=== PATIENT | female | born 1980 | race Caucasian/White ===

== ENCOUNTER 2022-04-21 13:00 | Outpatient (CLI) | payer OTHER, SELFPAY ==
--- NOTE | ~2022-04-21 | MM_ITS ---
EXAMINATION: MM diagnostic daysi RT w niyah HISTORY: Right breast asymmetry on screening mammogram TECHNIQUE: Additional 3-D tomosynthesis images of the right breast were performed and synthetic 2-D i mages were generated. CAD analysis was submitted and interpreted. COMPARISON: 03/07/2022 BREAST PARENCHYMAL COMPOSITION: The breasts are heterogeneously dense, which may obscure small masses . FINDINGS: No persistent asymmetry is identified with spot compression of the right breast. There is n o suspicious mass, calcification, or architectural distortion. IMPRESSION: 1. No mammographic evidence of malignancy. 2. Recommend routine screening mammography in one year. BI-RADS Category 1: Negative Reviewed, dictated and finalized at location A. VELOPMENT MANAGER
== END 2022-04-21 13:01 | disposition home or self-care (01) ==
PROVIDERS: PCP Family Medicine; Visit Provider Obstetrics & Gynecology
DX: R92.8 Other abnormal and inconclusive findings on diagnostic imaging of breast (principal)
CPT/HCPCS: 77061; 77065; G0279

== ENCOUNTER 2023-05-26 15:43 | Outpatient (CLI) | payer OTHER, SELFPAY ==
--- NOTE | ~2023-05-26 | MM_ITS ---
EXAMINATION: MM screening daysi BI w niyah HISTORY: Screening mammogram TECHNIQUE: Craniocaudal and mediolateral oblique 3-D tomosynthesis images were obtained and synthetic 2-D images were generated. CAD analysis was submitted and interpreted. COMPARISON: 04/21/2022, 03/07/2022 BREAST PARENCHYMAL COMPOSITION: The breasts are heterogeneously dense, which may obscure small masses . FINDINGS: RIGHT BREAST: No suspicious mass, calcification, or architectural distortion are identified to sugges t malignancy. There has been no suspicious interval change. LEFT BREAST: An asymmetry is present in the far posterior third breast in line with the nipple axis o n the craniocaudal view. IMPRESSION: 1. Left breast asymmetry. 2. Additional mammographic views and possible breast ultrasound are recommended. BI-RADS Category 0: Incomplete: Needs additional imaging evaluation. Reviewed, dictated and finalized at location A. ING SYSTEMS INSTALLER IMPRESSION: 1. Left breast asymmetry. 2. Additional mammographic views and possible breast ultrasound are recommended . BI-RADS Category 0: Incomplete: Needs additional imaging evaluation.
== END 2023-05-26 15:44 | disposition home or self-care (01) ==
PROVIDERS: PCP Family Medicine; Visit Provider Obstetrics & Gynecology
DX: Z12.31 Encounter for screening mammogram for malignant neoplasm of breast (principal); R92.8 Other abnormal and inconclusive findings on diagnostic imaging of breast
CPT/HCPCS: 77063; 77067

== ENCOUNTER 2023-06-15 12:45 | Outpatient (CLI) | payer OTHER, SELFPAY ==
--- NOTE | ~2023-06-15 | MMUS_ITS ---
EXAMINATION: MM diagnostic daysi LT w niyah, US breast LT complete HISTORY: Follow-up left breast asymmetries TECHNIQUE: Additional 3-D tomosynthesis images of the left breast were performed and synthetic 2-D im ages were generated. CAD analysis was submitted and interpreted. High resolution complete left breast ultrasound was performed. COMPARISON: Comparison to multiple prior studies sequentially, with oldest reviewed study dated 02/16. BREAST PARENCHYMAL COMPOSITION: BREAST PARENCHYMAL COMPOSITION: The breasts are heterogeneously dense, which may obscure small masses . FINDINGS: MAMMOGRAPHIC FINDINGS: There are no suspicious masses, calcifications or architectural distortion in the left breast to sugg est malignancy. The areas of asymmetry in the left breast are less apparent with spot compression vie ws. ULTRASOUND: Complete US of all 4 quadrants of the left breast and retroareolar region was reviewed. There are mul tiple cysts of the left breast, largest measuring 6 mm. No suspicious masses in the left breast to reyes ggest malignancy. IMPRESSION: 1. No evidence for malignancy in the left breast. Benign findings. 2. Routine yearly screening mammogram and regular clinical breast examination are recommended. BI-RADS Category 2: Benign finding(s). Reviewed, dictated and finalized at location A. TAL PRODUCER IMPRESSION: 1. No evidence for malignancy in the left breast. Benign findings. 2. Routine yearly screening mammogram and regular clinical breast examination a re recommended. BI-RADS Category 2: Benign finding(s).
== END 2023-06-15 12:46 | disposition home or self-care (01) ==
LOC: ANHIMG 12:46
PROVIDERS: PCP Family Medicine; Visit Provider Obstetrics & Gynecology
DX: R92.8 Other abnormal and inconclusive findings on diagnostic imaging of breast (principal)
CPT/HCPCS: 76641; 77061; 77065; G0279

== ENCOUNTER 2023-07-09 10:15 | Outpatient (CLI) | payer OTHER, SELFPAY ==
--- NOTE | 2023-07-09 10:36 | ECG_ITS ---
Measurements Intervals [place] Rate: 68 P: 4 TX: 145 QRS: 62 QRSD: 97 T: 30 QT: 393 QTc: 420 Interpretive Statements SINUS RHYTHM POSSIBLE LEFT ATRIAL ENLARGEMENT [-0.1mV P WAVE IN V1/V2] INCOMPLETE RIGHT BUNDLE BRANCH BLOCK [90+ ms QRS DURATION, TERMINAL R IN V1/V2, 40+ ms S IN I/aVL/V4/V5/V6] NO PREVIOUS ECG AVAILABLE FOR COMPARISON Electronically Signed On 07-09-2023 13:29:17 BROADLOOM WEAVER by Prieto Stroud M.D.
== END 2023-07-09 10:16 | disposition home or self-care (01) ==
LOC: ANHCARD 10:18
PROVIDERS: PCP Family Medicine; Visit Provider Physician Assistant
DX: I10 Essential (primary) hypertension (principal); I45.10 Unspecified right bundle-branch block
CPT/HCPCS: 93005

== ENCOUNTER 2024-04-21 09:33 | Outpatient (CLI) | payer OTHER, SELFPAY ==
--- NOTE | 2024-04-21 10:30 | ECHO_ITS ---
Patient Info Name: Kylah Mcgarry Age: 44 years : 1980 Gender: Female Ht: 67 in Wt: 155 lbs BSA: 1.83 m2 HR: 72 bpm BP: 112 / 72 mmHg Heart Rhythm: Sinus Rhythm Technical Quality: Excellent Exam Date: 04/21/2024 10:34 AM Exam Location: Echo Lab Patient Status: Outpatient Admit Date: 04/21/2024 Staff Ordering Physician: Chana Ayala PA-C [employer] Assembler: Delores Bello RDCS Attending Provider: Chana Ayala PA-C Referring Physician: Jamie THAO; Exam Type: CA echo doppler color flow Study Info Indications - palpitations Complete two-dimensional, color flow and Doppler transthoracic echocardiogram is performed. Summary 1. Complete two-dimensional, color flow and Doppler transthoracic echocardiogram is performed. 2. Normal biventricular systolic function. 3. Normal left ventricular diastolic function. 4. No significant valvular disease. Left Ventricle The left ventricle is normal in size and systolic function. The left ventricular ejection fraction is visually estimated to be 60-65%. The left ventricle has normal diastolic function. Right Ventricle The right ventricle is normal in size and systolic function. Left Atria The left atrium is normal in size. Right Atria The right atrium is normal in size. Atrial Septum The atrial septum is visually intact. Aortic Valve The aortic valve is trileaflet and opens well. There is no aortic regurgitation. Pulmonic Valve The pulmonic valve is not well visualized. There is no color Doppler evidence of pulmonic valve regurgitation. Mitral Valve The mitral valve is normal. There is no mitral regurgitation. Tricuspid Valve The tricuspid valve is normal. There is trace tricuspid regurgitation. Pericardium/Pleural Pericardium is normal in appearance with no evidence for significant pericardial effusion. Inferior Vena Cava Dilated inferior vena cava with >50% collapse upon inspiration consistent with elevated right atrial pressure, 10 mmHg. Aorta The ascending aorta measures 2.9 cm in diameter. The aortic root at the level of sinus of Valsalva: Index to BSA measures 1.6 cm/m2. Left Ventricular Outflow Tract Name Value Normal LVOT Doppler LVOT Peak Gradient 4 mmHg LVOT Mean Gradient 2 mmHg LVOT VTI 22 cm LVOT VTI/AV VTI Ratio 0.8 Pulmonic Valve Name Value Normal PV Doppler PV Peak Gradient 3 mmHg PV Regurgitation Doppler IN Peak End Diastolic Velocity 87 cm/s Mitral Valve Name Value Normal MV Doppler MV Decel [place] 443 cm/s2 MV PHT 53 ms MV Area (PHT) 4.2 cm2 4.0-5.0 MV Regurgitation Doppler MR Peak Gradient 70 mmHg MV Diastolic Function MV E Peak Velocity 81 cm/s MV A Peak Velocity 75 cm/s MV E/A 1.1 MV Decel Time 183 ms MV Annular TDI MV E/e' (Septal) 11.4 <=8.0 MV E/e' (Lateral) 7.7 <=8.0 MV E/e' (Average) 9.6 Tricuspid Valve Name Value Normal TV Regurgitation Doppler TR Peak Velocity 224 cm/s TR Peak Gradient 20 mmHg Estimated PAP/RSVP RA Pressure 10 mmHg <=5 PA Systolic Pressure 30 mmHg <36 RV Systolic Pressure 30 mmHg <36 Aorta Name Value Normal Ascending Aorta Ao Root Diameter (2D) 2.9 cm Ao Root Diam Index (2D) 1.6 cm/m2 Aortic Valve Name Value Normal AV Doppler AV Peak Velocity 136 cm/s AV Peak Gradient 7 mmHg AV Mean Gradient 4 mmHg AV VTI 28 cm Ventricles Name Value Normal LV Dimensions 2D/MM IVS Diastolic Thickness (2D) 0.7 cm 0.6-1.0 LVID Diastole (2D) 4.5 cm 3.8-5.2 LVIW Diastolic Thickness (2D) 0.9 cm 0.6-0.9 LVID Systole (2D) 3.0 cm 2.2-3.5 LV Mass (2D Cubed) 118.54 g 67.00-162.00 LV Mass Index (2D Cubed) 65 g/m2 43-95 Relative Wall Thickness (2D) 0.40 LV Fractional Shortening/Ejection Fraction 2D/MM LV Fractional Shortening (2D) 34 % 27-45 LV EF (2D Teicholz) 63 % 54-74 LV Diastolic Volume (4C MOD) 95 ml LV EF (4C MOD) 64 % LV Diastolic Volume (2C MOD) 89 ml LV EF (2C MOD) 58 % LV Diastolic Volume (BP MOD) 98 ml 46-106 LV Diastolic Volume Index (BP MOD) 53 ml/m2 29-61 LV Systolic Volume (BP MOD) 40 ml 14-42 LV Systolic Volume Index (BP MOD) 22 ml/m2 8-24 LV EF (BP MOD) 59 % 54-74 LV Diastolic Length (4C) 7.1 cm LV Systolic Length (4C) 5.3 cm LV Stroke Volume (4C MOD) 61 ml Atria Name Value Normal LA Dimensions LA Dimension (2D) 3.9 cm 2.7-3.8 LA Dimen Index (2D) 2.2 cm/m2 LA Volume (4C A-L) 44 ml LA Volume (BP A-L) 43 ml RA Dimensions RA Area (4C) 13.2 cm2 <=18.0 Report Signatures
== END 2024-04-21 09:34 | disposition home or self-care (01) ==
LOC: ANHCARD 09:34
PROVIDERS: PCP Family Medicine; Visit Provider Student in an Organized Health Care Education/Training Program
DX: R00.2 Palpitations (principal)
CPT/HCPCS: 93306

== ENCOUNTER 2024-09-02 08:49 | Outpatient (CLI) | payer OTHER, SELFPAY ==
--- NOTE | ~2024-09-02 | MM_ITS ---
EXAMINATION: MM screening daysi BI w niyah HISTORY: Screening TECHNIQUE: Craniocaudal and mediolateral oblique 3-D tomosynthesis images were obtained and synthetic 2-D images were generated. CAD analysis was submitted and interpreted. COMPARISON: Comparison to multiple prior studies sequentially, with oldest reviewed study dated 02/16. BREAST PARENCHYMAL COMPOSITION: Dense: The breasts are heterogeneously dense, which may obscure small masses FINDINGS: There is no evidence of suspicious mass, calcification, or architectural distortion to sugg est malignancy in either breast. There has been no suspicious interval change. IMPRESSION: 1. No mammographic evidence of malignancy. 2. Recommend routine screening mammography in one year. BI-RADS Category 1: Negative Reviewed, dictated and finalized at location B.
--- OUTSIDE RECORDS SUMMARY | 2024-09-02 08:57 | XMS_ITS | Clinical Summary ---
Author Organization [facility] Address [address] [place] [address] Care Team Providers Care Fire Extinguisher Repairer Inspector Name Role Phone Unavailable Primary Care Provider Unavailabl e Source Comments [facility],non-owned Affiliates and Associated Physician Practices is amultiple site organization consisting of ambulatory clinics and hospital sitesin [place], [place] and [place]. This disclosure is being madepursuant to the Care Everywhere program and may not contain all information available regarding this patient. Last updated 18.[facility] Allergies No known active allergies Medications * Be aware that medications may not be up to date on this document. Alwaysverify current medications with the patient. Vit-Fe Fumarate-FA ( 19 CHEWABLE) tablet Take 1 tablet by mouth once daily Active Norethin Everett-Eth Estrad-FE (LOESTRIN 24 FE PO) Active albuterol HFA (VENTOLIN HFA) 108 (90 BASE) MCG/ACT inhalerIndicatio ns:Acute bronchitis, unspecified organism Inhale 2 puffs by mouth every 6 hours as needed for Wheezing or Cough 1 Inhaler 9 Active Active Problems No known active problems Family History Medical History Relation Name Comments Hypertension Father Thyroid Disease Mother Asthma Neg Hx Autoimmune Disease Neg Hx Bipolar Disorder Neg Hx Cancer - Breast Neg Hx Cancer - Colon Neg Hx Cancer - Other Neg Hx Cancer - Ovarian Neg Hx Cancer - Pancreatic Neg Hx Cancer - Prostate Neg Hx Depression Neg Hx Eczema Neg Hx Migraine Neg Hx Osteoporosis Neg Hx Seizures Neg Hx Sudd. <30 Neg Hx Ulcerative Colitis Neg Hx Relation Name Status Comments Father Alive Mother Alive Social History Tobacco Use Types Packs/Day Years Used Date Smoking Tobacco: Never Smokeless Tobacco: Never Tobacco Cessation:Counseling Given: No Alcohol Use Standard Drinks/Week Comments No 0 (1 standard drink = 0.6 oz pur e alcohol) Comments No Sex and Gender Information Value Date Recorded Sex Assigned at Not on file Legal Sex Female 11:27 AM GRAIN INSPECTOR Gender Identity Not on file Sexual Orientation Not on file Last Filed Vital Signs Vital Sign Reading Time Taken Comments Blood Pressure 114/66 07/22/2018 3:11 PM GRAIN INSPECTOR Pulse 94 07/22/2018 3:11 PM GRAIN INSPECTOR Temperature 37 C (98.6 F) 07/22/2018 3:11 PM GRAIN INSPECTOR Respiratory Rate 16 07/22/2018 3:11 PM GRAIN INSPECTOR Oxygen Saturation 99% 07/22/2018 3:11 PM GRAIN INSPECTOR Inhaled Oxygen Concentration - - Weight 68 kg (150 lb) 07/22/2018 3:11 PM GRAIN INSPECTOR Height 170.2 cm (5' 7 ) 07/22/2018 3:11 PM GRAIN INSPECTOR Body Mass Index 23.49 07/22/2018 3:11 PM GRAIN INSPECTOR Plan of Treatment Health Maintenance Due Date Last Done Comments LIPID TESTING 1980 MAMMOGRAM 1980 HIV SCREENING 1997 HEPATITIS C SCREENING 02/29/2000 DTAP/TDAP/TD VACCINES (1 - Tdap) 2001 HEPATITIS B VACCINE (1 of 3 - 19+ 3-dose series) 2001 COVID-19 VACCINE ( - 2023-2 5 season) 2024 DEPRESSION SCREENING 05/18/2024 INFLUENZA VACCINE (Season Ended) 2025 ZOSTER VACCINE (1 of 2) 2032 HIB VACCINE Aged Out No longer eligi ble based on patient's age to complete this topic HPV VACCINE Aged Out No longer eligi ble based on patient's age to complete this topic MENINGOCOCCAL (Group B) VACC INE SHARED DECISION-MAKING Aged Out No longer eligibl e based on patient's age to complete this topic MENINGOCOCCAL GROUPS A/C/Y/W VACCINE Aged Out No longer eligible b ased on patient's age to complete this topic PNEUMOCOCCAL VACCINE Aged Out No long er eligible based on patient's age to complete this topic Insurance [employer]
--- OUTSIDE RECORDS SUMMARY | 2024-09-02 08:57 | XMS_ITS | Referral Summary ---
Author Organization [facility] Address [address] [place] [address] Care Team Providers Care Day Care Teacher Name Role Phone Astrid Liz MD Primary Care Provider [phone] Allergies No known active allergies Medications No known medications Active Problems No known active problems Immunizations Immunization Administration Dates Next Due Tdap 11/23/2016 Social History Tobacco Use Types Packs/Day Years Used Date Smoking Tobacco: Never Assessed Comments Unknown Sex and Gender Information Value Date Recorded Sex Assigned at Not on file Legal Sex Female 7:13 PM GPS FIELD DATA COLLECTOR Gender Identity Not on file Sexual Orientation Not on file Last Filed Vital Signs Vital Sign Reading Time Taken Comments Blood Pressure - - Pulse - - Temperature - - Respiratory Rate - - Oxygen Saturation - - Inhaled Oxygen Concentration - - Weight 70.3 kg (155 lb) 04/30/2014 5:24 AM GPS FIELD DATA COLLECTOR Height 172.7 cm (5' 7.99 ) 04/30/2014 5:24 AM CS T Body Mass Index 23.57 04/30/2014 5:24 AM GPS FIELD DATA COLLECTOR Plan of Treatment Not on file Procedures Procedure Name Priority Date/Time Associated Diagnosis Comments SCREENING MAMMOGRAM BILATERAL W ANKIT Schedule Routine, Read Routine (OP Routine) 03/07/2022 9:28 AM CDT Encounter for other screening for malignant neoplasm of breast from Last 3 Months or Most Recently Relevant to Health Maintenance Results * (ABNORMAL) Screening Mammogram Bilateral W Ankit (03/07/2022 9:28 AM CDT) Anatomical Region Laterality Modality Breast Bilateral Mammography 03/07/2022 3:31 PM CDT Impressions 03/07/2022 3:31 PM CDT 1. Upper right breast asymmetry on the MLO view. Recommend diagnostic right breast mammogram and ultrasound. 2. No evidence of malignancy in the left breast. Recommend screening mammogram of left breast in one year. BI-RADS: 0 - Additional imaging evaluation is necessary. The patient will be contacted. Electronically signed by: Manuel Garcai M.D. Narrative 03/07/2022 3:31 PM CDT EXAMINATION: SCREENING MAMMOGRAM BILATERAL W ANKIT ORDERING HEALTHCARE PROVIDER: CHELO SPIVEY HISTORY: Routine screening mammography. COMPARISON: None available TECHNIQUE: CC and MLO views of the bilateral breasts were obtained with digital technique using breast tomosynthesis with C view. Computer aided detection was utilized. FINDINGS: DENSITY: The tissue of the bilateral breasts is heterogeneously dense, which may obscure small masses. BREASTS: There is an MLO view asymmetry in the upper right breast at middle depth. There are no suspicious masses, suspicious calcifications, or other suspicious findings in the left breast. us Chelo Spivey MD IMG MAMMO PROCEDURES F inal Result from Last 3 Months or Most Recently Relevant to Health Maintenance Insurance [employer] [facility] [place] [id number] [facility] [id number] Care Teams Day Care Teacher Relationship Specialty Start Date End Date Astrid Liz MD PCP - General Family Medicine 03/04/22
--- OUTSIDE RECORDS SUMMARY | 2024-09-02 08:57 | XMS_ITS | Data Portability ---
Author Organization [facility] Gal JANSEN Address [address] [place] [address] Care Team Providers Care Insurance Account Representative Name Role Phone CHELO SPIVEY Building Carpenter Helper Assessment Encounter Date Assessment Date Assessment LastModified by Organization Details LastModified Time 12/27/2021 12/27/2021 SAIL REPAIR PERSON exam normal needs a higher dose pill to avoid mid-cycle spotting kids going into kindergarten and 2nd grade gave her first mammogram order Not available 12/27/2021 10:33:12 02/03/2023 02/03/2023 normal learning strategist exam doing well on ocps kids are 6 &8 Not available 02/03/2023 14:20:06 07/21/2023 07/21/2023 vaginitis plus swab done. BV seems likely, will await results Not available 07/21/2023 11:47:26 04/07/2024 04/07/2024 learning strategist exam normal might consider switching to continuous OCPs if shoulder pain doesnt bobby. ( rare diaphragmatic osis?) Not available 04/07/2024 12:13:02 Plan of Treatment Reminders Order Date Submit Date Provider Last Modified By Organization Details Last Modified Time Details Appointments None record ed. Lab cytolo gy report , thin prep, smear or scrapi ng, cervic al or vagina l 2023 024 [facility], [address], [address], [place], [address], 11:23:58 vagina l pathog ens panel, MITZI+pr obe, vagina l fluid 2023 024 [facility], [address], [address], [place], [address], 4 07:15:17 cytolo gy report , thin prep, smear or scrapi ng, cervic al or vagina l 2022 023 [facility], [address] [place] [address], [address], [place], [address], 3 16:14:36 cytolo gy report , thin prep, smear or scrapi ng, cervic al or vagina l 2021 022 [facility], [address] [place] [address], [address], [place], [address], 2 16:12:59 Referral None record ed. Procedures None record ed. Surgeries None record ed. Imaging MAMMO, screen ing, digita l, bilate ral 2023 024 [facility] ([facility]) , [address], [place], [address], 5 17:40:01 MAMMO, screen ing, digita l, bilate ral 2022 023 [facility], [address] [facility] [place], [address], 4 15:29:05 MAMMO, screen ing, digita l, bilate ral 2021 022 [facility], [address] [place], [address], 2 18:03:06 Medication Orders Monika 0.25 mg-0.0 35 mg tablet 2023 024 [id number], [address], [place], [place], [id number], 4 12:01:37 Monika 0.25 mg-0.0 35 mg tablet 2022 023 [facility] #[id number], [address], [place], [place], [id number], 3 14:02:23 Sprint ec (28) 0.25 mg-0.0 35 mg tablet 2021 022 [facility] #[id number], [address], [place], [place], [id number], 2 10:32:50 Patient TargetsNo targets recorded. Patient Instructions Encounter Date Encounter Id Patient Instructions Last Modified By Organization Details Last Modified Time 12/27/2021 [id number] learning about breast cancer screening Not available 12/27/2021 10:32:21 02/03/2023 [id number] learning about breast cancer screening Not available 02/03/2023 14:02:11 04/07/2024 [id number] learning about breast cancer screening Not available 04/07/2024 12:01:31 Reason for Referral None Reported. Results Created Date Observation Date Name Description Value Unit Range Abnormal Flag Note LastModifiedBy Organization Detail LastModifiedTime 12/28/19 22 01/02/2022 IGP, RFX APTIM A HPV ASCU diagnosis: Commen t NEGAT LAUREN FOR INTRA EPITH ELIAL LESIO N OR JUAN MONTALVO . SPECI MEN REPRO CESSE D FOR INTER PRETA TION USING GLACI AL ACETI C ACID (GAA) . Not Available [facility] ([facility]) [address], [place], [place], [address], 01/02/2022 16:12:59 12/28/19 22 01/02/2022 IGP, RFX APTIM A HPV ASCU specimen adequacy: Commen t Satis facto ry for evalu ation . No endoc ervic al compo nent is ident ified . Areas of parti ally obscu ring blood are prese nt. Not Available [facility] ([facility]) [address] [place], [address], 01/02/2022 16:12:59 12/28/19 22 01/02/2022 IGP, RFX APTIM A HPV ASCU clinician provided ICD10: Mir forbes Z01.4 19 Not Available [facility] ([facility]) [address] [place], [address], 01/02/2022 16:12:59 12/28/19 22 01/02/2022 IGP, RFX APTIM A HPV ASCU performed by: Mir kirk, Nicola forbes (ASCP ) Not Available [facility] ([facility]) [address] [place], [address], 01/02/2022 16:12:59 12/28/19 22 01/02/2022 IGP, RFX APTIM A HPV ASCU . . Not Available [facility] ([facility]) [address] [place], [address], 01/02/2022 16:12:59 12/28/19 22 01/02/2022 IGP, RFX APTIM A HPV ASCU note: Mir forbes The Pap smear is a scree evette test patito brennan to aid in the detec tion of doyle ligna nt and malig nant condi tions of the uteri ne cervi x. It is not a diagn ostic proce dure and shoul d not be used as the sole means of detec ting cervi isa cance r. Both false -posi tive and false -nega tive repor ts do occur . Not Available [facility] ([facility]) [address] [place], [address], 01/02/2022 16:12:59 12/28/19 22 01/02/2022 IGP, RFX APTIM A HPV ASCU test methodology: TNP The Thin Prep( R) Image r was unabl e to read this speci men. There fore a manua l revie w was perfo rmed. Not Available [facility] ([facility]) [address], [place], [place], [address], 01/02/2022 16:12:59 12/28/19 22 01/02/2022 IGP, RFX APTIM A HPV ASCU . Commen t The HPV DNA refle x crite keagan were not met with this speci men resul t there fore, no HPV testi ng was perfo rmed. Not Available [facility] ([facility]) [address], [place], [place], [address], 01/02/2022 16:12:59 02/04/20 23 02/05/2023 IGP, RFX APTIM A HPV ASCU diagnosis: Commen t NEGAT LAUREN FOR INTRA EPITH ELIAL LESIO N OR JUAN MONTALVO . Not Available [facility] ([facility]) [address], [place], [place], [address], 02/05/2023 16:14:35 02/04/20 23 02/05/2023 IGP, RFX APTIM A HPV ASCU specimen adequacy: Commen t Satis facto ry for evalu ation . Endoc ervic al and/o r squam ous metap lasti c cells (endo cervi isa compo nent) are prese nt. Not Available [facility] ([facility]) [address], [place], [place], [address], 02/05/2023 16:14:35 02/04/20 23 02/05/2023 IGP, RFX APTIM A HPV ASCU clinician provided ICD10: Commen t Z01.4 19 Not Available [facility] ([facility]) [address], [place], [place], [address], 02/05/2023 16:14:35 02/04/20 23 02/05/2023 IGP, RFX APTIM A HPV ASCU performed by: Mir t Nicola Mcgee (ASCP ) Not Available [facility] ([facility]) [address] [place], [address], 02/05/2023 16:14:35 02/04/20 23 02/05/2023 IGP, RFX APTIM A HPV ASCU . . Not Available [facility] ([facility]) [address] [place], [address], 02/05/2023 16:14:35 02/04/20 23 02/05/2023 IGP, RFX APTIM A HPV ASCU note: Mir t The Pap smear is a scree evette test desig anu to aid in the detec tion of doyle ligna nt and malig nant condi tions of the uteri ne cervi x. It is not a diagn ostic proce dure and shoul d not be used as the sole means of detec ting cervi isa cance r. Both false -posi tive and false -nega tive repor ts do occur . Not Available [facility] ([facility]) [address] [place], [address], 02/05/2023 16:14:35 02/04/20 23 02/05/2023 IGP, RFX APTIM A HPV ASCU test methodology: Mir t This liqui d based ThinP rep(R ) pap test was scree anu with the use of an image guide d systkellee m. Not Available [facility] ([facility]) [address] [place], [address], 02/05/2023 16:14:35 02/04/20 23 02/05/2023 IGP, RFX APTIM A HPV ASCU . Mir t The HPV DNA refle x crite keagan were not met with this speci men resul t there fore, no HPV testi ng was perfo rmed. Not Available [facility] ([facility]) [address], [place], [place], [address], 02/05/2023 16:14:35 07/21/19 24 07/22/2023 NUA B VAGIN ITIS PLUS (VG+) atopobium vaginae Low - 0 score Not Available [facility] ([facility]) [address], [place], [place], [address], 07/23/2023 07:15:17 07/21/19 24 07/22/2023 NUA B VAGIN ITIS PLUS (VG+) bvab 2 Low - 0 score Not Available [facility] ([facility]) [address], [place], [place], [address], 07/23/2023 07:15:17 07/21/19 24 07/22/2023 NUA B VAGIN ITIS PLUS (VG+) megasphaera 1 Low - 0 score Calcu late total score by emmie day the 3 indiv idual bacte rial vagin osis (BV) marke r score s toget her. Total score is inter prete d as follo ws: Total score 0-1: Indic ates the absen ce of BV. Total score 2: Indet ermin ate for BV. Addit ional clini isa data shoul d be evalu ated to estab leif a diagn osis. Total score 3-6: Indic ates the prese nce of BV. This test was devel oped and its perfo rmanc e coleman cteri stics deter mined by [facility]. It has not been clear ed or appro beny by the Food and Drug Admin istra tion. Not Available [facility] ([facility]) [address], [place], [place], [address], 07/23/2023 07:15:17 07/21/19 24 07/22/2023 NUA B VAGIN ITIS PLUS (VG+) yamilet albicans, MITZI Negati ve negati ve Not Available [facility] ([facility]) [address], [place], [place], [address], 07/23/2023 07:15:17 07/21/19 24 07/22/2023 NUA B VAGIN ITIS PLUS (VG+) yamilet glabrata, MITZI Negati ve negati ve Not Available [facility] ([facility]) [address], [place], [place], [address], 07/23/2023 07:15:17 07/21/19 24 07/23/2023 NUA B VAGIN ITIS PLUS (VG+) trich vag by MITZI Negati ve negati ve Not Available [facility] ([facility]) [address] [place], [address], 07/23/2023 07:15:17 07/21/19 24 07/23/2023 NUA B VAGIN ITIS PLUS (VG+) chlamydia trachomatis, MITZI Negati ve negati ve Not Available [facility] ([facility]) [address], [place], [place], [address], 07/23/2023 07:15:17 07/21/19 24 07/23/2023 NUA B VAGIN ITIS PLUS (VG+) neisseria gonorrhoeae, MITZI Negati ve negati ve Not Available [facility] ([facility]) [address], [place], [place], [address], 07/23/2023 07:15:17 04/07/20 24 04/18/2024 IGP, RFX APTIM A HPV ASCU diagnosis: COMMEN T NEGAT LAUREN FOR INTRA EPITH ELIAL LESIO N OR JUAN MONTALVO . THIS SPECI MEN WAS RESCR EENED PART OF OUR QUALI TY CONTR OL PROGR AM. Not Available [facility] ([facility]) [address] [place], [address], 04/18/2024 11:23:58 04/07/20 24 04/18/2024 IGP, RFX APTIM A HPV ASCU specimen adequacy: COMMEN T Satis facto ry for evalu ation . Endoc ervic al and/o r squam ous metap lasti c cells (endo cervi isa compo nent) are prese nt. Not Available [facility] ([facility]) [address] [place], [address], 04/18/2024 11:23:58 04/07/20 24 04/18/2024 IGP, RFX APTIM A HPV ASCU clinician provided ICD10: MIR Forbes Z01.4 19 Not Available [facility] ([facility]) [address] [place], [address], 04/18/2024 11:23:58 04/07/20 24 04/18/2024 IGP, RFX APTIM A HPV ASCU performed by: MIR henry, Cytot echno logis t (ASCP ) Not Available [facility] ([facility]) [address] [place], [address], 04/18/2024 11:23:58 04/07/20 24 04/18/2024 IGP, RFX APTIM A HPV ASCU QC reviewed by: MIR flannery, Cytot echno logis t Not Available [facility] ([facility]) [address] [place], [address], 04/18/2024 11:23:58 04/07/20 24 04/18/2024 IGP, RFX APTIM A HPV ASCU . . Not Available [facility] ([facility]) [address] [place], [address], 04/18/2024 11:23:58 04/07/20 24 04/18/2024 IGP, RFX APTIM A HPV ASCU note: MIR Forbes The Pap smear is a scree evette test desprachi anu to aid in the detec tion of doyle ligna nt and malig nant condi tions of the uteri ne cervi x. It is not a diagn ostic proce dure and shoul d not be used as the sole means of detec ting cervi isa cance r. Both false -posi tive and false -nega tive repor ts do occur . Not Available [facility] ([facility]) [address] [place], [address], 04/18/2024 11:23:58 04/07/20 24 04/18/2024 IGP, RFX APTIM A HPV ASCU test methodology: COMMEN T This liqui d based ThinP rep(R ) pap test was vj brennan with the use of an image guide paula hendrickson. Not Available [facility] ([facility]) [address] [place], [address], 04/18/2024 11:23:58 04/07/20 24 04/18/2024 IGP, RFX APTIM A HPV ASCU . COMMEN T The HPV DNA refle x crite keagan were not met with this speci men resul t there fore, no HPV testi ng was perfo rmed. Not Available [facility] ([facility]) [address], [place], [place], [address], 04/18/2024 11:23:58 03/07/20 22 03/07/2022 MAMMO , scree evette, digit al, bilat eral No observ ation [facility] ed. [facility] [address] [facility] [address], [place], [address], 03/10/2022 10:47:34 04/22/20 22 04/21/2022 MAMMO , diagn ostic , unila teral No observ ation record ed. [email or web address] [place] [address] Imaging [address], [place], [address], 04/22/2022 14:03:14 05/27/19 24 05/26/2023 MAMMO , scree evette, digit al, bilat eral No observ ation record ed. cdarrn [facility] [address] [place], [address], 05/27/2023 15:42:28 06/23/19 24 06/15/2023 MAMMO , diagn ostic , digit al, unila teral No observ ation record ed. [facility] ([facility]amm[facility]) [address], [place], [address], 06/24/2023 12:22:25 06/24/19 24 US, breas t, unila teral No observ ation record ed. [facility] ([facility]) [address], [place], [address], 06/24/2023 12:22:25 06/24/19 24 06/15/2023 MAMMO , diagn ostic , digit al, unila teral No observ ation record ed. [facility] ([facility]) [address], [place], [address], 06/24/2023 12:23:17 Result Notes None recorded. Problems Name Problem SNOMED Code Status Onset Date Resolution Date Notes Provider Name and Address Organization Details Recorded Time depression 84397295 Active Genoveva miranda MA null, [facility] 6 14:06:58 Vaginal discharge 570232205 Active Chelo Spivey MD Attn: Sudhajeni g,[address] [place], [address], [facility] 6 14:25:16 [id number] Completed 201511/27/2016 Radha Bower RN null, [facility] 7 14:51:40 Problem Notes None recorded. Procedures Surgical History Date Name Laterality Status Provider Name and Address Organization Details Recorded Time 4 Date of Last Pap Smear completed JAKE Machuca [facility] 04/18/2024 11:51:07 4 Most Recent Mammogram completed Radha Bower RN [facility] 05/27/2023 15:32:56 01/01/201 2 Elbow Surgery completed Radha Bower RN [facility] 05/09/2014 10:01:26 8 LEEP completed Radha Bower RN [facility] 05/09/2014 10:01:26 Imaging Results Imaging Date Name Status LastModified by Organiz ation Details LastModified Time 03/07/2022 MAMMO, screening, digital, bilateral completed [facility] [address] [facility] [address], [place], [address], 03/10/2022 10:47:34 04/21/2022 MAMMO, diagnostic, unilateral completed [address] Imaging [address], [place], [address], 04/22/2022 14:03:14 05/26/2023 MAMMO, screening, digital, bilateral completed [facility] [address] [facility] [place], [address], 05/27/2023 15:42:28 06/15/2023 MAMMO, diagnostic, digital, unilateral completed [facility] ([facility]) [address], [place], [address], 06/24/2023 12:22:25 06/24/2023 US, breast, unilateral completed [facility] ([facility]) [address], [place], [address], 06/24/2023 12:22:25 06/15/2023 MAMMO, diagnostic, digital, unilateral completed [facility] ([facility]) [address], [place], [address], 06/24/2023 12:23:17 Procedure Notes None recorded. Medical Equipment None Reported. Allergies No known drug allergies Medications Name Sig Start Date Stop Date Status Note LastModified by Organization Details LastModified Time amoxicillin 500 mg capsule 08/24 completed Not Available Not Available Not Available fluconazole 150 mg tablet 08/24 completed Not Available Not Available Not Available ampicillin 500 mg capsule Take 1 capsule 3 times a day by oral route for 10 days. 08/24 completed Not Available Not Available Not Available hydrocodone 5 mg-acetamin ophen 325 mg tablet 08/24 completed Not Available Not Available Not Available ondansetron HCl 4 mg tablet 08/24 completed Not Available Not Available Not Available amlodipine 2.5 mg tablet TAKE 1 TABLET BY MOUTH DAILY active Not Available Not Available No t Available chlorthalid one 25 mg tablet TAKE 1 TABLET BY MOUTH DAILY active Not Available Not Available No t Available ciprofloxac in 250 mg tablet 01/07 completed Not Available Not Available Not Available amlodipine 5 mg tablet TAKE 1 TABLET BY MOUTH DAILY active Not Available Not Available No t Available valacyclovi r 500 mg tablet active Not Available Not Available Not Available tamsulosin 0.4 mg capsule 01/14 completed Not Available Not Available Not Available neomycin-po lymyxin-dex ameth 3.5 mg/mL-10,00 0 unit/mL-0.1 % eye drops 01/14 completed Not Available Not Available Not Available zolpidem 5 mg tablet TK 1 TABLET PO AT LAB WHEN READY FOR SLEEP. MAY REPEAT IF NEEDED. 01/14 completed Not Available Not Available Not Available ibuprofen 600 mg tablet 08/24 completed Not Available Not Available Not Available norethindro ne (contracept lauren) 0.35 mg tablet TAKE 1 TABLET BY MOUTH EVERY DAY 08/24 completed Not Available Not Available Not Available ondansetron 4 mg disintegrat ing tablet 08/24 completed Not Available Not Available Not Available amoxicillin 875 mg-potassiu m clavulanate 125 mg tablet 08/24 completed Not Available Not Available Not Available nitrofurant oin monohydrate /macrocryst als 100 mg capsule Take 1 capsule every 12 hours by oral route for 7 days. 08/24 completed Not Available Not Available Not Available ProAir HFA 90 mcg/actuati on aerosol inhaler 01/14 completed Not Available Not Available Not Available Se- 19 (with docusate) 29 mg iron-1 mg-25 mg tablet 04/16 completed Not Available Not Available Not Available Junel Fe 24 1 mg-20 mcg (24)/75 mg (4) tablet TAKE 1 TABLET BY MOUTH EVERY DAY 07/09 completed Not Available Not Available Not Available Monika 0.25 mg-0.035 mg tablet TAKE 1 TABLET BY MOUTH EVERY DAY 2023 active Not Available Not Available Not Anastacia Roche COVID-19 Ag Self Test kit TEST DIRECTED TODAY 01/14 completed Not Available Not Available Not Available Vitals Date Recorded Body weight Body mass index (BMI) Body height Systolic blood pressure Diastolic blood pressure Provider Name and Address Organization Details Last Updated DateTime 12/27/2021 58884.11 g 24.6 kg/m2 172.72 cm 130 mm[Hg] 84 mm[Hg] Haydee Quiñonez [facility] 2 10:18:20 Date Recorded Body height Body mass index (BMI) Body weight Systolic blood pressure Diastolic blood pressure Provider Name and Address Organization Details Last Updated DateTime 01/15/2023 172.72 cm 24.6 kg/m2 78957.11 g 142 mm[Hg] 84 mm[Hg] Haydee Quiñonez [facility] 3 15:19:03 Date Recorded Body height Body mass index (BMI) Body weight Systolic blood pressure Diastolic blood pressure Provider Name and Address Organization Details Last Updated DateTime 02/03/2023 172.72 cm 24.6 kg/m2 96128.11 g 136 mm[Hg] 88 mm[Hg] Haydee Quiñonez [facility] 3 13:59:33 Date Recorded Body height Body mass index (BMI) Body weight Systolic blood pressure Diastolic blood pressure Provider Name and Address Organization Details Last Updated DateTime 07/21/2023 172.72 cm 24.6 kg/m2 53486.11 g 146 mm[Hg] 90 mm[Hg] Haydee Quiñonez [facility] 4 11:21:38 Date Recorded Body height Body mass index (BMI) Body weight Systolic blood pressure Diastolic blood pressure Provider Name and Address Organization Details Last Updated DateTime 04/07/2024 172.72 cm 24.2 kg/m2 38462.33 g 128 mm[Hg] 88 mm[Hg] Haydee Quiñonez [facility] 4 11:57:41 Social History Question Answer Notes LastModified by Organizat ion Details LastModified Time Tobacco Smoking Status Never Smoker Roxane Fernández betty, [place] - [facility] 01/07/2017 15:03:25 In The 14 Days Before Symptom Onset, Have You Had Close Contact With A Laboratory-confirm ed COVID-19 While That Case Was Ill? No Information n ot available 12/27/2021 In The 14 Days Before Symptom Onset, Have You Had Close Contact With A Person Who Is Under Investigation For COVID-19 While That Person Was Ill? No Information not available 12/27/2021 Have You Been To An Area Known To Be High Risk For COVID-19? No Information not available 12/27/2021 What Was The Date Of Your Most Recent Tobacco Screening? 04/07/2024 Information not available 04/07/2024 How Many Children Do You Have? 2 Information not available 12/27/2021 Do You Use Protection During Sex? No Information not available 12/27/2021 What Is Your Relationship Status? [email or web address] Information not available 06/12/2014 Are You Sexually Active? Yes Information not available 12/27/2021 Has Tobacco Cessation Counseling Been Provided? No Information not available 08/24/2020 Do You Or Have You Ever Used Any Other Forms Of Tobacco Or Nicotine? No Information not available 08/24/2020 Sex: Female Functional Status None recorded. Mental Status None recorded. Family History Nothing Reported. Medical History Condition Response Heart Problems/Murmur Y Headaches Y Kidney Stones Y Gynecological History Statement/Question Response Abnormal Pap Yes Sexually Active? Y Menses Monthly Y STIs/STDs N Date of Last Pap Smear 04/07/2024 Sexual Problems? N Current Control Method BCPs Most Recent Mammogram 05/26/2023 LMP Approximate Obstetrics History GPAL:G 2 P 2 0 0 2 Type Value Full Term 2 Living 2 Total 2 Immunizations Vaccine Type Date Status Note Provider Nam e and Address Organization Details Recorded Time COVID-19, mRNA, LNP-S, PF, 30 mcg/0.3 mL dose 08/26/2020 completed JAKE Machuca, [place] - [facility] 01/30/2023 11:05:05 COVID-19, mRNA, LNP-S, PF, 30 mcg/0.3 mL dose 09/16/2020 completed Haydee Quiñonez RMA null, [place] - [facility] 01/30/2023 11:05:05 Tdap 11/23/2016 completed Haydee Quiñonez R[place], [place] [facility] 07/21/2023 11:16:56 Past Encounters Encounter ID Performer Location Encounter Start Date Encounter Closed Date Diagnosis/Indication Diagnosis SNOMED-CT Code Diagnosis ICD10 Code Diagnosis Note [id number] ASCENCION Richey ([facility]) [address] [facility] [place] [address] 04/06/2014 16:12:34 04/06/2014 16:53:09 [id number] Ben Craig ([facility]) [address] [place] [address] 04/12/2014 09:50:37 04/12/2014 12:13:39 [id number] Stephanie Craig ([facility]) [address] [facility] [place] [address] 04/20/2014 16:50:36 04/20/2014 17:12:13 [id number] Stephanie Craig ([facility]) [address] [place] [address] 04/27/2014 16:47:56 04/28/2014 10:14:22 [id number] Stephanie Contreras Womencarter ([facility]) [address] [place] [address] 05/15/2014 15:57:44 05/15/2014 17:32:07 depression [id number] Ben Craig ([facility]) [address] [place] [address] 06/12/2014 14:13:39 06/12/2014 17:45:31 care [id number] MD Ben Richardson ([facility]) [address] [place] [address] 06/25/2015 15:20:01 06/25/2015 16:54:32 Gynecologic examination [id number] Z01.419 [id number] MD Ben Richardson ([place] [address]) [address] [place] [address] 01/28/2016 14:26:45 01/28/2016 15:20:47 Vaginal discharge [id number] N89.8 [id number] MD Ben Richardson ([place] [address]) [address] [facility] [place] [address] 02/07/2016 13:56:41 02/07/2016 14:45:32 Vaginal discharge [id number] N89.8 [id number] MD Ben Richardson ([place] [address]) [address] [facility] [place] [address] 04/30/2016 09:50:13 04/30/2016 13:33:44 Normal [id number] Z34.81 [id number] MD Ben Richardson ([place] [address]) [address] [facility] [place] [address] 05/29/2016 16:42:16 06/03/2016 11:09:57 Normal [id number] Z34.81 [id number] MD Ben Richardson ([place] [address]) [address] [facility] [place] [address] 06/30/2016 14:37:13 06/30/2016 16:40:11 Normal [id number] Z34.81 [id number] MD Ben Richardson ([place] [address]) [address] [facility] [place] [address] 07/28/2016 16:12:14 07/29/2016 10:16:41 Normal [id number] Z34.81 [id number] MD Ben Richardson ([place] [address]) [address] [facility] [place] [address] 08/28/2016 09:52:07 08/29/2016 17:13:46 Normal [id number] Z34.81 [id number] MD Ben Richardson ([place] [address]) [address] [facility] [place] [address] 09/18/2016 16:45:21 09/19/2016 09:32:08 Normal [id number] Z34.81 [id number] MD Ben Richardson ([place] [address]) [address] [facility] [place] [address] 10/10/2016 14:47:42 10/10/2016 16:05:46 Normal [id number] Z34.81 [id number] MD Ben Richardson ([place] [address]) [address] [facility] [place] [address] 10/24/2016 14:41:05 10/24/2016 15:46:41 Normal [id number] Z34.81 [id number] MD Ben Richardson ([place] [address]) [address] [facility] [place] [address] 10/30/2016 16:24:20 10/31/2016 10:39:23 Normal [id number] Z34.81 [id number] MD Ben Richardson ([place] [address]) [address] [facility] [place] [address] 11/07/2016 11:19:33 11/07/2016 13:42:48 Normal [id number] Z34.81 [id number] MD Ben Richardson ([place] [address]) [address] [facility] [place] [address] 11/13/2016 16:31:40 11/14/2016 09:07:36 Normal [id number] Z34.81 [id number] MD Ben Richardson ([place] [address]) [address] [facility] [place] [address] 11/20/2016 16:08:11 11/21/2016 09:02:02 Normal [id number] Z34.81 [id number] MD Ben Richardson ([place] [address]) [address] [facility] [place] [address] 12/08/2016 15:36:44 12/08/2016 16:20:35 depression [id number] O99.141 [id number] MD Ben Richardson ([place] [address]) [address] [facility] [place] [address] 01/07/2017 14:46:04 01/07/2017 16:05:58 care [id number] Z39.2 [id number] MD Ben Richardson 14 OB [address] [facility] [place] [address] 04/30/2018 10:49:21 04/30/2018 13:10:11 Gynecologic examination [id number] Z01.416 [id number] MD Ben Richardson [address] [place] [address] [place] [address] 09/07/2018 14:48:55 09/08/2018 10:14:21 Irregular periods [id number] N92.6 [id number] MD Ben Richardson 14 OB [address] [facility] [place] [address] 06/07/2019 14:18:38 06/08/2019 14:46:05 Gynecologic examination [id number] Z01.141 [id number] MD Ben Richardson [address] [place] [address] [place] [address] 08/24/2020 14:16:51 08/27/2020 13:06:11 Gynecologic examination [id number] Z01.419 Contracept ion care management [id number] Z30.9 [id number] MD Ben Richardsno 14 OB [address] [facility] [place] [address] 12/27/2021 09:54:42 12/30/2021 10:01:34 Gynecologic examination [id number] Z01.419 Screening for malignant neoplasm of breast [id number] Z12.39 Contracept ion care management [id number] Z30.9 [id number] Haydee Quiñonez Gisele Contreras 14 OB [address] [facility] [place] [address] 01/15/2023 14:43:23 01/15/2023 16:09:33 [id number] MD Ben Richardson 14 OB [address] [facility] [place] [address] 02/03/2023 13:51:24 02/04/2023 09:15:11 Contraception care management [id number] Z30.9 Gynecologi c examination [id number] Z01.419 Screening for malignant neoplasm of breast [id number] Z12.39 [id number] MD Ben Richardson [address] [place] [address] 07/21/2023 11:02:42 07/22/2023 11:28:07 Vaginal discharge [id number] N89.8 [id number] Chelo Spivey MD Ben 14 OB 4 [facility] [address] [address] 04/07/2024 11:24:12 04/11/2024 12:38:19 Contraception care management 644775276 Z30.9 Gynecologi c examination [id number] Z01.419 Screening for malignant neoplasm of breast 371151109 Z12.39 Health Concerns Section Related Observation LastModified by Organization Detai ls LastModified Time None Recorded Concern Status LastModified by Organization Details LastModified Time None Recorded Advance Directives Directive None Recorded Payers Encounter Date Sequence Insurance Name Policy Number Policy Whitney Covered Member ID Whitney Member ID Guarantor Name 12/27/2021 1 [facility] Kylah Zeferino [id number] OI Kylah Zeferino 01/15/2023 1 [facility] (PPO) Kylah Zeferino [id number] OI Kylah Zeferino 02/03/2023 1 [facility] (PPO) Kylah Zeferino [id number] OI Kylah Zeferino 07/21/2023 1 [facility] (PPO) Kylah Zeferino [id number] OI Kylah Zeferino 04/07/2024 1 [facility] (PPO) Kylah Zeferino [id number] OI Kylah Zeferino Notes Date Note Type Note Provider Name and Address Organization Details Recorded Time 12/27/2021 text/html Annual GYNReport ed bypatient.Menstrual cycle:Normal menses Urinary symptoms:No hematuria; No incontinence Vulva:No genital lesion Vagina:Normal vaginal discharge Breast:No breast pain; No breast lump; No nipple discharge Current Contraception:Oral contraceptives Sexual complaints:No sexual complaints; No pain during intercourse; Normal libido Menopausal Symptoms:No menopausal symptoms; Normal vaginal lubrication Psychological symptoms:No depression; No anxiety; No PMDD some breakthrough bleeding on OCPs Chelo Spivey MD Attn: [address]ing[address] [place], [address], [facility] 12/27/2021 10:33:16 02/03/2023 text/html Annual GYNReport ed bypatient.Menstrual cycle:Normal menses Urinary symptoms:No hematuria; No incontinence Vulva:No genital lesion Vagina:Normal vaginal discharge Breast:No breast pain; No breast lump; No nipple discharge Current Contraception:Oral contraceptives Sexual complaints:No sexual complaints; No pain during intercourse; Normal libido Menopausal Symptoms:No menopausal symptoms; Normal vaginal lubrication Psychological symptoms:No depression; No anxiety; No PMDD some breakthrough bleeding on OCPs Chelo Spivey MD Attn: [address]ing[address] [place], [address], [facility] 02/03/2023 14:21:07 07/21/2023 text/html new onset discha rge recently, some odorno new partners Chelo Spivey MD Attn: Accounting[address] [place], [address], [facility] 07/21/2023 11:47:59 04/07/2024 text/html Annual GYNReport ed bypatient.Menstrual cycle:Normal menses Urinary symptoms:No hematuria; No incontinence Vulva:No genital lesion Vagina:Normal vaginal discharge Breast:No breast pain; No breast lump; No nipple discharge Current Contraception:Oral contraceptives Sexual complaints:No sexual complaints; No pain during intercourse; Normal libido Menopausal Symptoms:No menopausal symptoms; Normal vaginal lubrication Psychological symptoms:No depression; No anxiety; No PMDD Chelo Spivey MD Attn: Accounting[address] [place], [address], [facility] 04/07/2024 12:13:26 OBGyn Episode Ob Episode Information Episode Created Date Number of Fetuses Patient Bloodtype Patient rh Status Prepregnancy Weight lbs Domestic Partner Domestic Partner Phone Father Name Pad Assembler Status 05/09/20 14 1 CLOSED Fetus Data First Name Last Name Admitted to NICU Weight (g) Sex Living Outcome Pediatric Complications Fetus ID Race Codes Race Delivery Type 3488.12 248 F Full Term 4741 Vaginal Meliton Calculation Initial Meliton Date Initial Exam Date Initial Exam Provider Initial Ultrasound Date Last Menstrual Period Date Ultra Sound Weeks Gestation 0 Eighteen To Twenty Week Meliton Update Ultra Sound Date Fundal Height At Umbil Quickening Date Ultra Sound Latest Weeks Gestation Final Meliton Confirmed By Final Meliton Confirmed Date Final Meliton Date Ultra Sound Latest Days Gestation 0 0 Menstrual History Last Menstrual Date Menses Monthly On Bcp Conception Prior Menses Frequency Hcg Plus Date Menarche Onset Age Delivery Information Delivery Date Delivery Type Labor Anesthesia Weeks Gestation Incision Type Labor Labor Length Hrs Delivered By Post Complications Tubal Sterilization Discharge Date Comments 4 [facility]- idural Dr. Alford O/C for Dr. Spivey Discharge Information Feeding Method Contraceptive Method Maternal HG B and HCT Levels Ob Episode Information Episode Created Date Number of Fetuses Patient Bloodtype Patient rh Status Prepregnancy Weight lbs Domestic Partner Domestic Partner Phone Father Name Pad Assembler Status 04/30/20 16 1 O Positive Del. @ [facility] CLOS ED Fetus Data First Name Last Name Admitted to NICU Weight (g) Sex Living Outcome Pediatric Complications Fetus ID Race Codes Race Delivery Type Harshil Mcgarry false 3912.23 1 M true Full Term [id number] White Vaginal Meliton Calculation Initial Meliton Date Initial Exam Date Initial Exam Provider Initial Ultrasound Date Last Menstrual Period Date Ultra Sound Weeks Gestation 11/21/2016 04/30/2016 06/20/2016 02/15/2016 18 Eighteen To Twenty Week Meliton Update Ultra Sound Date Fundal Height At Umbil Quickening Date Ultra Sound Latest Weeks Gestation Final Meliton Confirmed By Final Meliton Confirmed Date Final Meliton Date Ultra Sound Latest Days Gestation 0 [email or web address] 06/09/2016 017 0 Pre-mamadou Flowsheet Flowsheet Date 04/30/2016 Cortez Score Blood Edema Fundus Height Fundus Units Glucose Ketones Leukocytes Nitrite Labor Signs Protein Cervic Dilation Cervic Effacement Cervic Station 10 wks 0cm 0% -4 Type Weight in lbs Pre/Post Dialysis Refused BP Diastolic BP Location Tested BP Systolic BP Type Fetus Heart Rate Present A 165 Present Fetus Movement Comments secod baby, has had some spo tting, but FHTs normal today Flowsheet Date 05/29/2016 Cortez Score Blood Edema Fundus Height Fundus Units Glucose Ketones Leukocytes Nitrite Labor Signs Protein Cervic Dilation Cervic Effacement Cervic Station Type Weight in lbs Pre/Post Dialysis Refused 142.603118712020 BP Diastolic BP Location Tested BP Systolic BP Type 68 96 sitting Fetus Heart Rate Present A 166 Present Fetus Movement Comments doing well. questions about clear DC, US , etc Flowsheet Date 06/30/2016 Cortez Score Blood Edema Fundus Height Fundus Units Glucose Ketones Leukocytes Nitrite Labor Signs Protein Cervic Dilation Cervic Effacement Cervic Station Type Weight in lbs Pre/Post Dialysis Refused 146.218860897702 BP Diastolic BP Location Tested BP Systolic BP Type 57 108 sitting Fetus Heart Rate Present A 146 Present Fetus Movement A Yes Comments 19 weeks doing well, unclear sex on USno MSAFP Flowsheet Date 07/28/2016 Cortez Score Blood Edema Fundus Height Fundus Units Glucose Ketones Leukocytes Nitrite Labor Signs Protein Cervic Dilation Cervic Effacement Cervic Station 22 cm Type Weight in lbs Pre/Post Dialysis Refused 143.688647928330 BP Diastolic BP Location Tested BP Systolic BP Type 72 105 sitting Fetus Heart Rate Present A 156 Present Fetus Movement A Yes Comments doing well, sugar test next time Flowsheet Date 08/28/2016 Cortez Score Blood Edema Fundus Height Fundus Units Glucose Ketones Leukocytes Nitrite Labor Signs Protein Cervic Dilation Cervic Effacement Cervic Station 26 cm Type Weight in lbs Pre/Post Dialysis Refused 152.063885820431 BP Diastolic BP Location Tested BP Systolic BP Type 62 98 sitting Fetus Heart Rate Present A 145 Present Fetus Movement A Yes Comments doing well, no new issues, s ugar test today Flowsheet Date 09/18/2016 Cortez Score Blood Edema Fundus Height Fundus Units Glucose Ketones Leukocytes Nitrite Labor Signs Protein Cervic Dilation Cervic Effacement Cervic Station 28 cm Type Weight in lbs Pre/Post Dialysis Refused 155.11191251271 BP Diastolic BP Location Tested BP Systolic BP Type 66 106 sitting Fetus Heart Rate Present A 156 Fetus Movement A Yes Comments doing well, passed sugar yen t GBS next time Flowsheet Date 10/10/2016 Cortez Score Blood Edema Fundus Height Fundus Units Glucose Ketones Leukocytes Nitrite Labor Signs Protein Cervic Dilation Cervic Effacement Cervic Station 32 cm Type Weight in lbs Pre/Post Dialysis Refused 156.785696730480 BP Diastolic BP Location Tested BP Systolic BP Type 58 116 sitting Fetus Heart Rate Present A 154 Present Fetus Movement A Yes Comments doing well, spontaneous labo r with #1valtrx started today Flowsheet Date 10/24/2016 Cortez Score Blood Edema Fundus Height Fundus Units Glucose Ketones Leukocytes Nitrite Labor Signs Protein Cervic Dilation Cervic Effacement Cervic Station 34 cm Type Weight in lbs Pre/Post Dialysis Refused 158.249300222864 BP Diastolic BP Location Tested BP Systolic BP Type 67 118 sitting Fetus Heart Rate Present A 154 Present Fetus Movement A Yes Comments doing well, cervix check nex t timeI 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 Flowsheet Date 10/30/2016 Cortez Score Blood Edema Fundus Height Fundus Units Glucose Ketones Leukocytes Nitrite Labor Signs Protein Cervic Dilation Cervic Effacement Cervic Station 35 cm 2cm 70% -3 Type Weight in lbs Pre/Post Dialysis Refused 160.639541257920 BP Diastolic BP Location Tested BP Systolic BP Type 72 112 sitting Fetus Heart Rate Present A 145 Present Fetus Movement A Yes Comments doing well no issues Flowsheet Date 11/07/2016 Cortez Score Blood Edema Fundus Height Fundus Units Glucose Ketones Leukocytes Nitrite Labor Signs Protein Cervic Dilation Cervic Effacement Cervic Station none 36 cm Type Weight in lbs Pre/Post Dialysis Refused 157.813567958337 BP Diastolic BP Location Tested BP Systolic BP Type 68 102 sitting Fetus Heart Rate Present A 138 Present Fetus Movement A Yes Comments Was 39 2/7 when delivered fi rst baby, declines 39 week induction Flowsheet Date 11/13/2016 Cortez Score Blood Edema Fundus Height Fundus Units Glucose Ketones Leukocytes Nitrite Labor Signs Protein Cervic Dilation Cervic Effacement Cervic Station 36 cm 3cm 80% -3 Type Weight in lbs Pre/Post Dialysis Refused 162.470471478521 BP Diastolic BP Location Tested BP Systolic BP Type 72 90 sitting Fetus Heart Rate Present A 144 Present Fetus Movement A Yes Comments doing well, declines inducti on for nowI missed last one -TK delivered Flowsheet Date 11/20/2016 Cortez Score Blood Edema Fundus Height Fundus Units Glucose Ketones Leukocytes Nitrite Labor Signs Protein Cervic Dilation Cervic Effacement Cervic Station trace 36 cm Type Weight in lbs Pre/Post Dialysis Refused 161.811912297581 BP Diastolic BP Location Tested BP Systolic BP Type 76 122 sitting Fetus Heart Rate Present A 141 Present Fetus Movement A Yes Comments No room at [facility] for induction tomorrow, will go for Thursday Menstrual History Last Menstrual Date Menses Monthly On Bcp Conception Prior Menses Frequency Hcg Plus Date Menarche Onset Age 0902/15/2016 Delivery Information Delivery Date Delivery Type Labor Anesthesia Weeks Gestation Incision Type Labor Labor Length Hrs Delivered By Post Complications Tubal Sterilization Discharge Date Comments 7 Induce d [facility]- idural 40.2 gibson Spivey MD None 11/25/2016 Discharge Information Feeding Method Contraceptive Method Maternal HG B and HCT Levels Breast
--- OUTSIDE RECORDS SUMMARY | 2024-09-02 08:57 | XMS_ITS | Clinical Summary ---
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 CONSULTANT Gender Identity Not on file Sexual Orientation Not on file Obstetrics History Para Term AB IAB SAB Ectopic Multiple Livin g Live Births 2 Date Outcome GA Total Labor Labor/2nd/3rd Weight Sex Type Anes PTL Priya A1 A5 Name Clin Last Filed Vital Signs Vital Sign Reading Time Taken Comments Blood Pressure - - Pulse - - Temperature - - Respiratory Rate - - Oxygen Saturation - - Inhaled Oxygen Concentration - - Weight 70.3 kg (155 lb) 04/30/2014 5:24 AM LENDING CONSULTANT Height 172.7 cm (5' 7.99 ) 04/30/2014 5:24 AM CS T Body Mass Index 23.57 04/30/2014 5:24 AM LENDING CONSULTANT Plan of Treatment Health Maintenance Due Date Last Done Comments Cervical Cancer Screening 1982 Depression Screening 1982 Hepatitis C Screening 1982 Varicella Vaccines (1 of 2 - 13+ 2-dose series) 1995 Hepatitis B Screening 2000 Regular Well Visit/Exam 18-64 2000 Breast Cancer Screening-Mammogram 03/07/2023 03/07/2022 Covid-19 Vaccine (3 - 2023-2 5 season) 2024 09/16/2020, 08/26/2020 Influenza Vaccine (#1) 2024 DTaP/Tdap/Td Vaccine (2 - Td or Tdap) 11/23/2026 11/23/2016 HPV Vaccines Aged Out No longer eligi ble based on patient's age to complete this topic Pneumococcal vaccine <65 Aged Out No longer eligible based on patient's age to complete this topic Procedures Procedure Name Priority Date/Time Associated Diagnosis [...] will be contacted. Electronically signed by: Manuel Garcia M.D. Narrative 03/07/2022 3:31 PM CDT EXAMINATION: [...] Most Recently Relevant to Health Maintenance Insurance [place] [address] [facility] [id number] [facility] [id number] Care Teams Meat Passer Relationship Specialty Start Date End Date Astrid Liz MD PCP - General Family Medicine 03/04/22
== END 2024-09-02 08:50 | disposition home or self-care (01) ==
LOC: ANHIMG 08:51
PROVIDERS: PCP Family Medicine; Visit Provider Obstetrics & Gynecology
DX: Z12.31 Encounter for screening mammogram for malignant neoplasm of breast (principal)
CPT/HCPCS: 77063; 77067

== ENCOUNTER 2025-03-21 09:06 | Outpatient (CLI) | payer OTHER, SELFPAY ==
--- NOTE | ~2025-03-21 | CT_ITS ---
CT HEAD CTA NECK, CTA HEAD Clinical History: I10 - Essential (primary) hypertension Comparison: None TECHNIQUE: Unenhanced axial images skull base to vertex Coronal, sagittal reformats Helical images thoracic inlet to vertex IV contrast information not listed in PACS Coronal, sagittal reformats. Multi planar MIPS CT images acquired with automatic exposure control for dose reduction DLP: 1434 mGy-cm Findings: CT HEAD Sulci, ventricles: Unremarkable. No intracerebral hemorrhage. No evidence acute territorial infarct. No mass effect, midline shift. Bony calvarium intact. Visualized paranasal sinuses: Clear. Mastoid air cells: Clear. No abnormal foci of contrast enhancement. Patent dural venous sinuses. CTA NECK NASCET Criteria utilized Aortic arch: No aneurysm or dissection. Aberrant origin right subclavian artery, small diverticulum. Great vessel origins: No stenosis. CCAs: No dissection. No stenosis. Cervical ICAs: No dissection. No stenosis. Vertebral Arteries: Patent. Lung Apices: Clear. Thyroid: Tiny nodules. Nodes: No enlarged nodes. Bones: No acute bony abnormality. CTA HEAD: Aneurysms: None. Intracranial ICAs: Patent, unremarkable. ACAs and their distal branches: Patent, unremarkable. A-Comm: Identified. Patent, unremarkable. MCAs and their distal branches: Patent, unremarkable. Basilar artery: Patent. Proximal fenestration. inventory taker and their distal branches: Patent, unremarkable. P-Comms: Identified. IMPRESSION: CT HEAD: 1. No acute intracranial findings. CTA NECK: 1. No ICA stenosis or other acute arterial abnormality. CTA HEAD: 1. No large vessel arterial occlusive disease or other acute findings. 2. No aneurysms. Reviewed, dictated and finalized at location R. RITY ORDERLY
[2025-03-21 09:38] LABS: Estimated Glomerular Filt Rate > 60
--- OUTSIDE RECORDS SUMMARY | 2025-03-21 10:09 | XMS_ITS | Clinical Summary ---
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
--- OUTSIDE RECORDS SUMMARY | 2025-03-21 10:09 | XMS_ITS | Clinical Summary ---
Author Organization [facility] Address [address] [place] [address] Care Team Providers Care Security Officer Supervisor Name Role Phone Unavailable Primary Care Provider Unavailabl e Source Comments [facility],non-owned Affiliates and Associated Physician Practices is amultiple site organization consisting of ambulatory clinics and hospital sitesin [place], [place], [place] and [place]. This disclosure is being madepursuant to the Care Everywhere program and may not contain all information available regarding this patient. Last updated 18.[facility] Allergies No known active allergies Medications * [...] on file Legal Sex Female 11:27 AM MEDICAL EQUIPMENT REPAIR TECHNICIAN Gender Identity Not on file Sexual Orientation Not on file Last Filed Vital Signs Vital Sign Reading Time Taken Comments Blood Pressure 114/66 07/22/2018 3:11 PM MEDICAL EQUIPMENT REPAIR TECHNICIAN Pulse 94 07/22/2018 3:11 PM MEDICAL EQUIPMENT REPAIR TECHNICIAN Temperature 37 C (98.6 F) 07/22/2018 3:11 PM MEDICAL EQUIPMENT REPAIR TECHNICIAN Respiratory Rate 16 07/22/2018 3:11 PM MEDICAL EQUIPMENT REPAIR TECHNICIAN Oxygen Saturation 99% 07/22/2018 3:11 PM MEDICAL EQUIPMENT REPAIR TECHNICIAN Inhaled Oxygen Concentration - - Weight 68 kg (150 lb) 07/22/2018 3:11 PM MEDICAL EQUIPMENT REPAIR TECHNICIAN Height 170.2 cm (5' 7) 07/22/2018 3:11 PM MEDICAL EQUIPMENT REPAIR TECHNICIAN Body Mass Index 23.49 07/22/2018 3:11 PM MEDICAL EQUIPMENT REPAIR TECHNICIAN Plan of Treatment Health Maintenance Due Date Last Done Comments LIPID TESTING 1982 MAMMOGRAM 1982 HIV SCREENING 1997 HEPATITIS C SCREENING 02/29/2000 DTAP/TDAP/TD VACCINES (1 - Tdap) 2001 HEPATITIS B VACCINE (1 of 3 - 19+ 3-dose series) 2001 HPV VACCINE (1 - 3-dose SCDM series) 2009 DEPRESSION SCREENING 05/18/2024 COVID-19 VACCINE (1 - 2023-2 5 season) 2025 INFLUENZA VACCINE (#1) 2025 ZOSTER VACCINE (1 of 2) 2032 [...] patient's age to complete this topic Insurance [employer]
== END 2025-03-21 09:07 | disposition home or self-care (01) ==
LOC: ANHIMG 09:12
PROVIDERS: PCP Family Medicine; Visit Provider Student in an Organized Health Care Education/Training Program
DX: E78.5 Hyperlipidemia, unspecified (principal); I10 Essential (primary) hypertension; H93.A9 Pulsatile tinnitus, unspecified ear
CPT/HCPCS: 70496; 70498; Q9967